=== PATIENT | male | born 1985 ===

== ENCOUNTER 2025-04-29 21:04 | Emergency (ER) | payer SELFPAY ==
[~2025-04-29] VITALS: Ht 172.7 cm; Wt 89.1 kg
[2025-04-29 21:13] VITALS: BP 136/92; PULSE 123; RESP 20; TEMP 98.1; O2SAT 95
== END 2025-04-29 21:13 | disposition left against medical advice (07) ==
LOC: EMS 21:04
DX: Z00.8 Encounter for other general examination (principal); Z53.21 Procedure and treatment not carried out due to patient leaving prior to being seen by health care provider
CPT/HCPCS: 99281; Z7502

== ENCOUNTER → 2025-04-30 | Emergency (ER) | payer SELFPAY ==
[~2025-04-30] VITALS: Ht 170.2 cm; Wt 81.8 kg
[2025-04-30 00:50] VITALS: TEMP 98.1
[2025-04-30 01:42] VITALS: BP 129/75; PULSE 101; RESP 14; O2SAT 95
[2025-04-30] MEDS: KETOROLAC TROMETHAMINE 30 MG/ML VIAL IM ONE (02:09)
== END | disposition still patient (30) ==
LOC: EDUNIT# 00:35 → EMS 00:46
DX: M54.2 Cervicalgia (principal); J44.89 Other specified chronic obstructive pulmonary disease; I10 Essential (primary) hypertension; E78.00 Pure hypercholesterolemia, unspecified; F10.90 Alcohol use, unspecified, uncomplicated; Z65.3 Problems related to other legal circumstances; Y04.0XXA Assault by unarmed brawl or fight, initial encounter
CPT/HCPCS: 99283; 96372; J1885